=== PATIENT | female | born 1950 | race Caucasian/White ===

== ENCOUNTER 2016-05-30 21:20 | Inpatient (IN) ==
[2016-05-30] MEDS ORDERED: Ondansetron 4 MG/2 ML VIAL IVP ONE (22:00)
[2016-05-30] MEDS ORDERED: 0.9 % Sodium Chloride 1,000 ML IVC ONE (22:00)
--- NOTE | 2016-05-30 22:10 | Emergency Department Note ---
START Narrative - START START: For this encounter, I have reviewed the resident, MACARONI PRESS OPERATOR, or PA documentation, treatment plan, and medical decision making; and I have had face to face time with this patient. 65 yo female presents with n/v/d and abdominal pain. symptoms present x3 weeks. diffuse abdominal pain, described as cramping, better with bowel movement. History of Lung cancer with mets to the brain. No chemo or radiation therapy at this time. ON physical exam pt is tachycardic with hyperactive bowel sounds with tenderness to the bilateral lower quadrants. CT abdomen shows sigmoid diverticulitis with adjacent abscess. Pt started on cipro /flagyl and admitted to the hospital for continuation of care.
[2016-05-30 22:21] LABS: Basophils % 0.2 %; Eosinophils % 0.1 %; Hematocrit 30.5 % (35.3-44.9); Hemoglobin 9.8 g/dL (11.5-15.4); Immature Granulocytes % 0.3 % (0-4); Lymphocytes # 0.9 K/mcL (0.6-4.6); Lymphocytes % 8.6 %; Mean Corpuscular HGB Conc 32.1 g/dL (31.6-35.5); Mean Corpuscular Hemoglobin 29.3 pg (28.0-33.3); Mean Corpuscular Volume 91.3 fL (83.0-100.0); Mean Platelet Volume 9.2 fL (9.4-12.4); Monocytes # 1.7 K/mcL (0.0-1.3); Monocytes % 17.4 %; Platelet Count 416 K/mcL (140-400); Red Blood Count 3.34 M/mcL (3.82-4.97); Red Cell Distribution Width 14.8 % (11.5-14.5); Segmented Neutrophils % 73.4 %
[2016-05-30 22:23] LABS: Neutrophils # 7.3 K/mcL (1.6-8.9)
--- NOTE | 2016-05-30 23:04 | Emergency Department Note ---
Disposition Clinical Impression: Sigmoid diverticulitis Disposition: Admitted As Inpatient Condition: Fair Time of Disposition: 02:54 Nausea/Vomiting/Diarrhea HPI - General Chief complaint: ED Nausea/Vomiting/Diarrhea Stated complaint: N/V/D Time Seen by Provider: 05/30/16 21:33 Source: patient, EMS Limitations: no limitations Nursing Notes Reviewed: Yes Vital Signs Reviewed: Yes - History of Present Illness HPI Narrative: Patient is a 65-year-old female who presents to [facility] ED with a chief complaint of abdominal pain. States there has been increased cramping over the last few days. She has had diarrhea with some mucus, over the last 3 weeks. Patient has had some bright red blood occasionally when she wipes. Denies any fevers or chills. No problems with urination. Past medical history significant for lung cancer with metastasis to the brain. She does occasionally receive radiation but is not currently undergoing any chemotherapy. States they called their oncologist earlier today who sent her in to be seen with concern for dehydration. Pt Subjective Complaint: nausea, vomiting, diarrhea, abdominal pain Onset (ago): week(s) Description of emesis: watery Description of Diarrhea: water, mucous Associated Abdominal Pain: Yes If pain, Location of pain: diffuse Radiation: diffuse Severity: moderate Quality: cramping Consistency: intermittent Improves with: nothing Worsens with: nonthing Associated symptoms: Reports: nausea/vomiting. Denies: cough, fever/chills - Related Data Home Medications Medication Instructions Recorded Confirmed Fluticasone Propionate Nasal 2 spray NS DAILY 01/19/15 03/25/16 [Flonase] Pravastatin Sodium [Pravachol] 40 mg PO DAILY 01/19/15 03/25/16 Cholecalciferol (D-3) [Vitamin D] 5,000 unit PO DAILY 09/26/15 03/25/16 Naproxen [Naprosyn] 500 mg PO BID PRN 09/26/15 03/25/16 OxyCODONE/APAP 10/325 [Percocet 1 each PO Q6HR PRN 09/26/15 03/25/16 10/325 MG] Metformin [Glucophage] 500 mg PO BID 05/13/16 05/13/16 Previous Rx's Medication Instructions Recorded HYDROcodone BIT/Homatropine LQ 5 ml PO Q6H PRN #120 syrup 11/22/15 [Hycodan Syrup] OxyCODONE/APAP 10/325 [Percocet 1 each PO Q6HR PRN #60 tablet 02/26/16 10/325 MG] Pantoprazole Sodium [Protonix] 40 mg PO QDPC #90 tablet. 02/26/16 Hydromorphone HCl [Dilaudid] 1 - 2 tab PO Q4H PRN #90 tablet 03/14/16 Prochlorperazine Maleate 10 mg PO Q6HR PRN #60 tablet 03/14/16 [Compazine] Gabapentin [Neurontin] 300 mg PO TID #90 capsule 03/25/16 Dexamethasone [Decadron] 4 mg PO BID #60 tab 03/29/16 Polyethylene Glycol 3350 [MiraLAX 1 scoop PO DAILY #510 gm 04/22/16 Powder Bulk 17.9 Oz] Azithromycin [Zithromax] 250 - 500 mg PO DAILY #6 tablet 05/27/16 Allergies Allergy/AdvReac Type Severity Reaction Status Date / Time codeine AdvReac Nausea Verified 05/13/16 14:48 All systems ED: reviewed and negative except as stated. Past Medical History - Past Medical History Attestation: Yes The following information was validated with the patient. Source: patient Medical history: Reports: cancer Surgical history: Reports: hysterectomy, other Psychiatric history: Reports: no psych history - Social History Smoking Status: Never smoker Smokeless Tobacco Status: No Alcohol use: Reports: none Drug use: Reports: none Physical Exam - General Limitations: no limitations General appearance: alert - Head Head exam: atraumatic, normocephalic, normal inspection - Eye Eye exam: Present: normal appearance, PERRL, EOMI - ENT ENT exam: normal exam, normal oropharynx, mucous membranes moist - Neck Neck exam: Present: normal inspection, full ROM, trachea midline - Chest Chest inspection: Present: normal inspection, symmetric chest wall rise - Respiratory Respiratory exam: Present: normal lung sounds bilaterally - Cardiovascular Cardiovascular exam: Present: regular rate, normal rhythm, normal heart sounds - Abdominal Exam Abdominal exam: Present: soft, tenderness, hyperactive bowel sounds. Absent: distention, guarding, rebound, rigidity Abdominal tenderness: Present: LLQ, diffuse, moderate - Extremities Exam Extremities exam: Present: normal inspection, full ROM. Absent: tenderness, pedal edema - Neurological Exam Neurological exam: Present: alert, oriented X3 - Psychiatric Psychiatric exam: Present: normal affect, normal mood - Skin Skin exam: Present: warm, dry, intact, normal color Course Course Narrative: Patient seen and examined. Diarrhea over the last 3 weeks with severe abdominal cramping. We will check abdominal labs as well as provide IV fluid hydration. She does have hyperactive bowel sounds. We will get a GI panel since the diarrhea has been going on so long. Bentyl for the cramping. We will reassess. - Reevaluation(s) Reevaluation #1: Lab work shows some anemia with a hemoglobin of 9. This is decreased from prior hemoglobin 13 and level of 9 in the past. CAT scan shows sigmoid diverticulitis with a large abscess. IV Flagyl and Cipro were ordered. I spoke with surgeon Dr. Contreras who will see the patient in consult. He would like coags ordered. I also spoke with hospitalist Dr. Chan who has accepted patient for admission. Time: 02:56 Vital Signs Temperature 98.3 F 05/30/16 21:24 Pulse Rate 96 05/30/16 21:24 Respiratory Rate 18 05/30/16 21:24 Blood Pressure 126/60 05/30/16 21:24 O2 Sat by Pulse Oximetry 95 05/30/16 21:24 Temperature 97.6 F 05/31/16 04:39 Pulse Rate 78 05/31/16 04:39 Respiratory Rate 15 05/31/16 04:39 Blood Pressure 117/84 05/31/16 04:39 O2 Sat by Pulse Oximetry 100 05/31/16 05:13 Oxygen Delivery Oxygen Delivery Nasal Cannula Nausea/Vomiting/Diarrhea - Medical Records Medical records reviewed: Yes I reviewed the patient's medical records. - Lab Data Lab results reviewed: Yes I reviewed the patient's lab results. Result diagrams: 05/30/16 22:03 05/30/16 22:52 Lab Results 05/30/16 05/30/16 05/30/16 Range/Units 22:03 22:42 22:52 WBC 9.9 (4.3-11.1) K/mcL RBC 3.34 L (3.82-4.97) M/mcL Hgb 9.8 L (11.5-15.4) g/dL Hct 30.5 L (35.3-44.9) % MCV 91.3 (83.0-100.0) fL MCH 29.3 (28.0-33.3) pg MCHC 32.1 (31.6-35.5) g/dL RDW 14.8 H (11.5-14.5) % Plt Count 416 H (140-400) K/mcL MPV 9.2 L (9.4-12.4) fL Immature Gran % 0.3 (0-4) % Seg Neutrophils % 73.4 % Lymphocytes % 8.6 % Monocytes % 17.4 % Eosinophils % 0.1 % Basophils % 0.2 % Neutrophils # 7.3 (1.6-8.9) K/mcL Lymphocytes # 0.9 (0.6-4.6) K/mcL Monocytes # 1.7 H (0.0-1.3) K/mcL Eosinophils # 0.0 (0.0-0.6) K/mcL Basophils # 0.0 (0.0-0.2) K/mcL PT (9.4-12.1) Seconds INR APTT (26.0-36.0) Seconds Sodium 139 (136-145) mEq/L Potassium 3.2 L (3.5-4.5) mEq/L Chloride 106 (98-109) mEq/L Carbon Dioxide 23 (19-29) mEq/L BUN 8 (7-20) mg/dL Creatinine 0.51 L (0.57-1.11) mg/dL Est GFR ( Amer) > 60 (> 60) Est GFR (Non-Af Amer) > 60 (> 60) BUN/Creatinine Ratio 16 (6-26) Glucose 117 H (70-99) mg/dL Calculated Osmolality 287 (280-300) Calcium 8.1 L (8.6-10.8) mg/dL Total Bilirubin 0.2 (0.2-1.2) mg/dL AST 9 (5-34) Units/L ALT 9 (0-55) Units/L Alkaline Phosphatase 81 (38-126) Units/L Serum Total Protein 5.3 L (6.0-8.3) g/dL Albumin 1.7 L (3.5-5.0) g/dL Globulin 3.6 H (2.4-3.5) g/dL Albumin/Globulin Ratio 0.5 L (1.1-2.2) Lipase 5 L (8-78) Units/L Urine Color (Yellow) Urine Clarity (Clear) Urine pH (5.0-8.0) pH Units Ur Specific [place] (1.010-1.025) Urine Protein (Neg-Trace) mg/dL Urine Glucose (UA) (Normal) mg/dL Urine Ketones (Negative) mg/dL Urine Blood (Negative) Urine Nitrite (Negative) Urine Bilirubin (Negative) Urine Urobilinogen (Normal) mg/dL Ur Leukocyte Esterase (Negative) Ur Culture Indicated? (NO) Specimen Rejected Hemolyzed 05/30/16 05/31/16 Range/Units 23:44 01:23 WBC (4.3-11.1) K/mcL RBC (3.82-4.97) M/mcL Hgb (11.5-15.4) g/dL Hct (35.3-44.9) % MCV (83.0-100.0) fL MCH (28.0-33.3) pg MCHC (31.6-35.5) g/dL RDW (11.5-14.5) % Plt Count (140-400) K/mcL MPV (9.4-12.4) fL Immature Gran % (0-4) % Seg Neutrophils % % Lymphocytes % % Monocytes % % Eosinophils % % Basophils % % Neutrophils # (1.6-8.9) K/mcL Lymphocytes # (0.6-4.6) K/mcL Monocytes # (0.0-1.3) K/mcL Eosinophils # (0.0-0.6) K/mcL Basophils # (0.0-0.2) K/mcL PT 12.8 H (9.4-12.1) Seconds INR 1.2 APTT 29.9 (26.0-36.0) Seconds Sodium (136-145) mEq/L Potassium (3.5-4.5) mEq/L Chloride (98-109) mEq/L Carbon Dioxide (19-29) mEq/L BUN (7-20) mg/dL Creatinine (0.57-1.11) mg/dL Est GFR ( Amer) (> 60) Est GFR (Non-Af Amer) (> 60) BUN/Creatinine Ratio (6-26) Glucose (70-99) mg/dL Calculated Osmolality (280-300) Calcium (8.6-10.8) mg/dL Total Bilirubin (0.2-1.2) mg/dL AST (5-34) Units/L ALT (0-55) Units/L Alkaline Phosphatase (38-126) Units/L Serum Total Protein (6.0-8.3) g/dL Albumin (3.5-5.0) g/dL Globulin (2.4-3.5) g/dL Albumin/Globulin Ratio (1.1-2.2) Lipase (8-78) Units/L Urine Color Yellow (Yellow) Urine Clarity Clear (Clear) Urine pH 7.0 (5.0-8.0) pH Units Ur Specific [place] 1.010 (1.010-1.025) Urine Protein Negative (Neg-Trace) mg/dL Urine Glucose (UA) Normal (Normal) mg/dL Urine Ketones Negative (Negative) mg/dL Urine Blood Negative (Negative) Urine Nitrite Negative (Negative) Urine Bilirubin Negative (Negative) Urine Urobilinogen Normal (Normal) mg/dL Ur Leukocyte Esterase Negative (Negative) Ur Culture Indicated? NO (NO) Specimen Rejected - Radiology Data Radiology results reviewed: Yes I reviewed the patient's radiology results. Abdomen/Pelvis CT 05/31/16 00:15 IMPRESSION: 1. Sigmoid diverticulitis with a large adjacent abscess. 2. Left adnexal lesion has already been evaluated with MRI. Surgical consultation and pelvic sonography have already been recommended. D/ / Og Langston MD / Og Langston MD Interpreting Provider: Og Langston MD
[2016-05-31 00:01] LABS: Bilirubin,Urine Negative (Negative); Blood,Urine Negative (Negative); Clarity,Urine Clear (Clear); Color,Urine Yellow (Yellow); Glucose,Urine (UA) Normal (Normal); Ketones,Urine Negative (Negative); Leukocyte Esterase,Urine Negative (Negative); Nitrite,Urine Negative (Negative); Protein,Urine Negative (Neg-Trace); Urobilinogen,Urine Normal (Normal)
[2016-05-31 00:15] LABS: Alanine Aminotransferase 9 Units/L (0-55); Albumin/Globulin Ratio 0.5 (1.1-2.2); Alkaline Phosphatase 81 Units/L (38-126); Aspartate Amino Transferase 9 Units/L (5-34); BUN/Creatinine Ratio 16 (6-26); Bilirubin,Total 0.2 mg/dL (0.2-1.2); Blood Urea Nitrogen 8 mg/dL (7-20); Calcium 8.1 mg/dL (8.6-10.8); Carbon Dioxide 23 mEq/L (19-29); Chloride 106 mEq/L (98-109); Globulin 3.6 g/dL (2.4-3.5); Glucose 117 mg/dL (70-99); Lipase 5 Units/L (8-78); Osmolality,Calculated 287 (280-300); Sodium 139 mEq/L (136-145); eGFR For African Americans > 60 (> 60); eGFR For Non-African Americans > 60 (> 60)
[2016-05-31 00:17] LABS: Albumin 1.7 g/dL (3.5-5.0); Potassium 3.2 mEq/L (3.5-4.5); Total Protein 5.3 g/dL (6.0-8.3)
[2016-05-31] MEDS ORDERED: MetroNIDAZOLE 500 MG/100 ML 500 MG/100 ML BAG IVPB ONE (01:11)
[2016-05-31 01:31] LABS: INR 1.2; Prothrombin Time 12.8 Seconds (9.4-12.1)
[2016-05-31 01:34] LABS: Activated Partial Thrombo Time 29.9 Seconds (26.0-36.0)
--- NOTE | 2016-05-31 04:32 | Internal Med History&Physical ---
Date of Encounter: 05/31/16 Time of Encounter: 04:26 Assessment and Plan (1) Abscess of sigmoid colon due to diverticulitis Current visit: Yes Status: Acute Surgery consulted, appreciate management Will make NPO for now and support with maintenance IVF, analgesics, and anti- emetics PRN Start antibiotics with anaerobic coverage with Meropenem and Flagyl GI panel collected, results pending (2) Anemia Current visit: Yes Status: Acute Likely due to blood loss from GI in setting of divertulitis with abscess Hb of 9.8 at admission with previous baseline around 12-13 last year; MCV 91 No acute indication for transfusion, but will type and screen for now Qualifiers: Qualified Code(s): D64.9 - Anemia, unspecified (3) Metastatic squamous cell carcinoma Current visit: Yes Status: Chronic Patient being managed by her oncologist at [facility], will defer to outpatient management Not currently on any chemo/radiation (4) Hypokalemia Current visit: Yes Status: Acute Likely secondary to GI losses Initial levels of 3.2 and received 40 mEq PO in ED Will recheck levels in AM Internal Medicine - H&P: HPI Chief complaint: abdominal pain Admitted From: Home Plans for Post Hospital Care: Home History of present illness: Ms. Rose is a 65 year old female who presents to the emergency department with abdominal pain. She states that she had diarrhea and lower abdominal pain for the past 3 weeks and has been progressively getting worse. She states the pain is intermittent and not associated with food or movement, and that it gets worse after she has diarrhea. She claims to have up to 15 movements per day and describes them as loose and sometimes watery. She denies any urinary symptoms, hemoptysis, nausea, vomiting, fevers, or recent travels, but does state she has noticed some bright red blood when she wipes on occasion for the last several months. She reports her appetite is good and has not noticed any weight loss. Her most recent colonoscopy was roughly 3 years ago and she has known history of diverticulosis, but never has anything like this happen to her in the past. Of note, she has history of squamous cell lung cancer with mets to bone and brain, and has had resection of left parietal mets last year. She has been off and on chemo during this time as well, but has not received any treatment in the last few months. She currently denies any chest pain, shortness of breath, diaphoresis, lightheadedness. Past Med Surg Social Fam HX - Past Medical History Medical history: cancer Psychiatric history: no psych history - Past Surgical History Surgical History: hysterectomy, other - Social History Smoking Status: Never smoker Smokeless Tobacco Status: No Alcohol use: none Drug use: none Internal Medicine - H&P: Meds Fluticasone Propionate Nasal [Flonase] 2 spray NS DAILY 01/19/15 [History] Pravastatin Sodium [Pravachol] 40 mg PO DAILY 01/19/15 [History] Cholecalciferol (D-3) [Vitamin D] 5,000 unit PO DAILY 09/26/15 [History] Naproxen [Naprosyn] 500 mg PO BID PRN 09/26/15 [History] OxyCODONE/APAP 10/325 [Percocet 10/325 MG] 1 each PO Q6HR PRN 09/26/15 [History] HYDROcodone BIT/Homatropine LQ [Hycodan Syrup] 5 ml PO Q6H PRN #120 syrup [Rx] OxyCODONE/APAP 10/325 [Percocet 10/325 MG] 1 each PO Q6HR PRN #60 tablet [Rx] Pantoprazole Sodium [Protonix] 40 mg PO QDPC #90 tablet.dr 02/26/16 [Rx] Hydromorphone HCl [Dilaudid] 1 - 2 tab PO Q4H PRN #90 tablet 03/14/16 [Rx] Prochlorperazine Maleate [Compazine] 10 mg PO Q6HR PRN #60 tablet 03/14/16 [Rx] Gabapentin [Neurontin] 300 mg PO TID #90 capsule 03/25/16 [Rx] Dexamethasone [Decadron] 4 mg PO BID #60 tab 03/29/16 [Rx] Polyethylene Glycol 3350 [MiraLAX Powder Bulk 17.9 Oz] 1 scoop PO DAILY #510 gm 04/22/16 [Rx] Metformin [Glucophage] 500 mg PO BID 05/13/16 [History] Azithromycin [Zithromax] 250 - 500 mg PO DAILY #6 tablet 05/27/16 [Rx] Allergies codeine Adverse Reaction (Verified 05/13/16 14:48) Nausea All Systems PM: A 10-system review of systems was performed and is negative for pertinent findings except as documented above in the HPI. - Constitutional Constitutional: no chills, no fever(s), no night sweats, no weight loss - EENT Eyes: no change in vision, no discharge, no pain, no photophobia Ears: no ear discharge, no ear pain, no tinnitus Nose, mouth and throat: no dysphagia, no nasal discharge, no neck pain, no sore throat - Cardiovascular Cardiovascular ROS IM: no chest pain, no diaphoresis, no dyspnea, no lightheadedness, no palpitations, no syncope - Respiratory Respiratory: no cough, no dyspnea, no wheezing, no excessive phlegm production - Gastrointestinal Gastrointestinal: as per HPI, abdominal pain, diarrhea, no hematemesis, no hematochezia, no melena, no nausea, no vomiting - Genitourinary Genitourinary: no change in urinary stream, no dysuria, no flank pain, no hematuria - Musculoskeletal Musculoskeletal ROS IM: no numbness, no tingling - Integumentary Integumentary IM: no rash, no unusual bruising - Neurological Neurological ROS: no confusion, no convulsions, no focal weakness, no numbness, no tingling, no tremor(s) - Hematologic/Lymphatic Hematologic/Lymphatic: no easy bruising - Constitutional Vitals: Temp Pulse Resp BP Pulse Ox 98.3 F 81 16 106/53 98 05/30/16 21:24 05/31/16 03:41 05/31/16 03:51 05/31/16 03:51 05/31/16 03:41 General appearance: Present: cooperative, pleasant, no acute distress, answers questions appropriately - Head Head exam: Present: atraumatic, normocephalic - Eye Eye exam: Present: PERRL, conjuntiva pink, sclera anicteric - Neck Neck exam general surgery: Present: supple, trachea midline. Absent: lymphadenopathy - Respiratory Respiratory exam: Present: CTAB. Absent: accessory muscle use, rales, rhonchi, wheezes - Cardiovascular Cardiovascular exam: Present: RRR, +S1, +S2. Absent: diastolic murmur, gallop, rubs, systolic murmur - GI/Abdominal GI/Abdominal exam: Present: normal bowel sounds, soft, tenderness (LLQ), no peritoneal signs. Absent: distended, firm, guarding - Extremities Exam Extremities exam: Present: warm, radial pulses palpable and symetrical. Absent : calf tenderness, cyanotic, pedal edema - Neurological Exam Neurological exam: Present: alert, no focal deficits. Absent: facial droop, speech deficit - Skin Skin exam: Present: dry, intact Internal Med - H&P Results - Labs CBC & Chem 7: 05/30/16 22:03 05/30/16 22:52
[2016-05-31] MEDS ORDERED: *HR* Morphine 2 MG/ML SYRINGE IVP PRN (04:49)
[2016-05-31] MEDS ORDERED: Naloxone 0.4 MG/ML INJ IVP PRN (04:49)
[2016-05-31] MEDS ORDERED: Acetaminophen 325 MG TABLET PO PRN (04:49)
[2016-05-31] MEDS: Ringers Solution, Lactated 1,000 ML IVC SCH (05:47)
--- NOTE | 2016-05-31 05:48 | Event Note ---
Date of Encounter: 05/31/16 Time of Encounter: 05:47 Patient seen and examined with medical records coder. Agree with assessment and plan. Acute diverticulitis complicated with abscess. Surgery and interventional radiology consultation. meropenem, Flagyl
[2016-05-31] MEDS ORDERED: Meropenem 1,000 MG in 0.9 % Sodium Chloride Mini Bag 100 ML IVPB SCH (08:00)
[2016-05-31] MEDS: Pantoprazole 40 MG VIAL IVP SCH (09:39)
--- NOTE | 2016-05-31 09:44 | General Surgery Consult Note ---
Date of Encounter: 05/31/16 Time of Encounter: 09:00 Assessment and Plan (1) Abscess of sigmoid colon due to diverticulitis Current Visit: Yes Status: Acute NPO and bowel rest IV fluids IV antibiotics- Meropenem and flagyl IR consultation for drainage of abscess- notified to complete today Supportive care and pain control Serial abdominal exams Will need an interval colonoscopy in 6-8 weeks Surgery will continue to follow and assess progress (2) Metastatic lung cancer (metastasis from lung to other site) Current Visit: Yes Status: Chronic Management per oncologist at [facility] Qualifiers: Laterality: right Qualified Code(s): C34.91 - Malignant neoplasm of unspecified part of right bronchus or lung History of Present Illness Consult date: 05/31/16 Reason for consult: other (Diverticulitis with abscess) Requesting physician: Jannette Villaseñor History of present illness: Mrs. Rose is a very pleasant 65 year old female who presented to the ED with a 3 week history of abdominal pain. She states that over the past 3 weeks that the pain has become more intense and constant. Generalized pain all over her abdomen. She states that she has not been treated or evaluated for the pain but that she was scheduled to see a senior clinical sas programmer today for evaluation at [facility]. She states that she could not take the pain anymore and that her oncologist recommended coming to the ED for evaluation. She states that she has never had pain this severe in the past. She states that she has had intermittent abdominal pain for the past few years. She has never been hospitalized for diverticulitis. She admits to diarrhea for the past 3 weeks. She typically has a bowel movement after meals up to 3 times per day. She does admit to some rectal bleeding due to irritation of her hemorrhoids with the diarrhea. Denies any fevers/chills. Denies any nausea/vomiting. Denies any loss of appetite of weight loss. Denies any difficulty with urination. Denies any shortness of breath of chest pains. Her last colonoscopy was approximately 3 years ago and was normal at that time. She does have a history of colon polyps. We have been asked to see and evaluate the patient for her diverticulitis with abscess which was seen on CT scan. Past Med Surg Social Fam HX - Past Medical History Source: patient, old records reviewed Medical history: arthritis, cancer (metastatis lung cancer (brain); skin cancer ; uterine cancer), GERD, hyperlipidemia, other (Diverticulosis, colon polyps) Psychiatric history: no psych history - Past Surgical History Surgical History: cancer surgery (chemotherapy and radiation therapy intermittently for brain metastasis; bilateral foot surgery; colonoscopy 3 years ago; Tonsillectomy), hysterectomy, other (brain surgery) - Social History Smoking Status: Never smoker Smokeless Tobacco Status: No Alcohol use: none Drug use: none Current living situation: Home - Independent Activity Level: Independent ambulation Medications and Allergies Fluticasone Propionate Nasal [Flonase] 100 mcg NS DAILY 01/19/15 [History] Cholecalciferol (D-3) [Vitamin D] 5,000 unit PO DAILY 09/26/15 [History] Prochlorperazine Maleate [Compazine] 10 mg PO Q6HR PRN #60 tablet 03/14/16 [Rx] Metformin [Glucophage] 500 mg PO BID 05/13/16 [History] Gabapentin [Neurontin] 100 mg PO TID 05/31/16 [History] Pantoprazole Sodium [Protonix] 40 mg PO DAILY PRN 05/31/16 [History] Pioglitazone HCl [Pioglitazone HCl] 30 mg PO DAILY 05/31/16 [History] Venlafaxine HCl [Venlafaxine HCl] 37.5 mg PO BID 05/31/16 [History] Allergies codeine Adverse Reaction (Verified 05/31/16 10:20) Drowsy Review of Systems All systems PM: reviewed and no additional remarkable complaints except as stated (in the HPI) All systems PM: A 10-system review of systems was performed and is negative for pertinent findings except as documented above in the HPI. General Surgery Exam Initial Vital Signs Temp Pulse Resp BP Pulse Ox 98.3 F 96 18 126/60 95 05/30/16 21:24 05/30/16 21:24 05/30/16 21:24 05/30/16 21:24 05/30/16 21:24 - General physical appearance well developed, well nourished, no distress - Eyes normal ocular movement - ENT normal mucosa, atraumatic, normocephalic - Neck trachea midline - Respiratory normal respiratory effort, clear to auscultation - Cardiovascular Cardiovascular exam: Present: RRR, 15, 16 - Abdomen Abdomen general surgery: Present: bowel sounds present, soft, tender (mildly tender with palpation ) Abdominal Tenderness: Present: LLQ - Integumentary Integumentary general surgery: Present: warm and dry - Neurologic Present: CN 2-12 grossly intact - Musculoskeletal Present: normal gait, normal posture - Psychiatric Psychiatric general surgery: Present: appropriate, oriented to person, oriented to place, oriented to time, speech is normal, memory intact Exam Initial Vital Signs Temp Pulse Resp BP Pulse Ox 98.3 F 96 18 126/60 95 05/30/16 21:24 05/30/16 21:24 05/30/16 21:24 05/30/16 21:24 05/30/16 21:24 Results - Labs 05/30/16 22:03 05/30/16 22:52 Abnormal lab results RBC 3.34 M/mcL (3.82-4.97) L 05/30/16 22:03 Hgb 9.8 g/dL (11.5-15.4) L 05/30/16 22:03 Hct 30.5 % (35.3-44.9) L 05/30/16 22:03 RDW 14.8 % (11.5-14.5) H 05/30/16 22:03 Plt Count 416 K/mcL (140-400) H 05/30/16 22:03 MPV 9.2 fL (9.4-12.4) L 05/30/16 22:03 Monocytes # 1.7 K/mcL (0.0-1.3) H 05/30/16 22:03 PT 12.8 Seconds (9.4-12.1) H 05/31/16 01:23 Potassium 3.2 mEq/L (3.5-4.5) L 05/30/16 22:52 Creatinine 0.51 mg/dL (0.57-1.11) L 05/30/16 22:52 Glucose 117 mg/dL (70-99) H 05/30/16 22:52 Calcium 8.1 mg/dL (8.6-10.8) L 05/30/16 22:52 Serum Total Protein 5.3 g/dL (6.0-8.3) L 05/30/16 22:52 Albumin 1.7 g/dL (3.5-5.0) L 05/30/16 22:52 Globulin 3.6 g/dL (2.4-3.5) H 05/30/16 22:52 Albumin/Globulin Ratio 0.5 (1.1-2.2) L 05/30/16 22:52 Lipase 5 Units/L (8-78) L 05/30/16 22:52 All other labs normal. - Imaging CT scan - abdomen: report reviewed CT scan - pelvis: report reviewed Additional studies: Abdomen/Pelvis CT 05/31/16 00:15 IMPRESSION: 1. Sigmoid diverticulitis with a large adjacent abscess. 2. Left adnexal lesion has already been evaluated with MRI. Surgical consultation and pelvic sonography have already been recommended. D/ / Og Langston MD / Og Langston MD Interpreting Provider: Og Langston MD Consult Discharge Plan - Plan Referrals: NO,PCP [Non-Partnered Physician] - - Attending Attestation I examined this patient and my medical decision-making was reviewed with the PREFORMING MACHINE OPERATOR/PA/Advanced Practice Nurse/Resident Physician. I agree with the documented findings, disposition and treatment plan as described except to the extent set forth below.
[2016-05-31] MEDS ORDERED: MetroNIDAZOLE 500 MG/100 ML 500 MG/100 ML BAG IVPB SCH (10:00)
[2016-05-31] MEDS ORDERED: *HR* Midazolam HCl 2 MG/2 ML VIAL IV PRN (10:24)
[2016-05-31] MEDS ORDERED: *HR* FentaNYL (PF) 100 MCG/2 ML VIAL IV PRN (10:24)
--- NOTE | 2016-05-31 10:26 | Pre-Sedation Evaluation ---
Pre-sedation evaluation - Pre-sedation checklist Procedure: LYMPH NODE BIOPSY Recent Vitals: Last Vital Signs Temp 98.3 F 05/31/16 07:49 Pulse 78 05/31/16 07:49 Resp 16 05/31/16 07:49 BP 107/68 05/31/16 07:49 Pulse Ox 95 05/31/16 07:49 H&P (including ROS) documented in medical record: Yes Previous reaction to sedatives/anesthetics: No Dietary Status: NPO after Midnight Airway Assessment: Patient can open mouth completely, TMJ function normal, Micrognathia (under-bite, receding chin) absent, Neck with adequate range of motion Dentition: No loose teeth or bridges Possible difficult airway: No ASA Classification *see protocol: CLASS II-Mild systemic disease Plan of Care: Pt appropriate candidate for procedure/moderate/conscious sedation , Risks/benefits of procedure/sedation discussed w/ patient/family
[2016-05-31] MEDS ORDERED: 0.9 % Sodium Chloride 500 ML ONE (12:08)
[2016-05-31] MEDS: *HR* Morphine 2 MG/ML SYRINGE IVP PRN ×3 (13:28→21:05)
[2016-05-31 13:53] LABS: BUN/Creatinine Ratio 12 (6-26); Blood Urea Nitrogen 7 mg/dL (7-20); Calcium 8.6 mg/dL (8.6-10.8); Carbon Dioxide 23 mEq/L (19-29); Chloride 108 mEq/L (98-109); Glucose 165 mg/dL (70-99); Osmolality,Calculated 292 (280-300); Potassium 3.6 mEq/L (3.5-4.5); Sodium 140 mEq/L (136-145); eGFR For African Americans > 60 (> 60); eGFR For Non-African Americans > 60 (> 60)
[2016-05-31 13:57] LABS: Basophils % 0.1 %; Eosinophils % 0.3 %; Hematocrit 27.4 % (35.3-44.9); Hemoglobin 8.8 g/dL (11.5-15.4); Immature Granulocytes % 0.3 % (0-4); Lymphocytes # 0.6 K/mcL (0.6-4.6); Lymphocytes % 8.2 %; Mean Corpuscular HGB Conc 32.1 g/dL (31.6-35.5); Mean Corpuscular Hemoglobin 29.5 pg (28.0-33.3); Mean Corpuscular Volume 91.9 fL (83.0-100.0); Mean Platelet Volume 9.2 fL (9.4-12.4); Monocytes # 1.6 K/mcL (0.0-1.3); Monocytes % 20.1 %; Platelet Count 396 K/mcL (140-400); Red Blood Count 2.98 M/mcL (3.82-4.97)
[2016-05-31 14:45] LABS: Neutrophils # 5.5 K/mcL (1.6-8.9)
[2016-05-31 14:56] LABS: Polychromasia 1+ (Not Present)
[2016-05-31] MEDS: Piperacillin/Tazobactam 3.375 GM in D5% in Water (Mini-Bag+) 100 ML IVPB SCH (16:48)
--- NOTE | 2016-05-31 17:22 | Event Note ---
Date of Encounter: 05/31/16 Time of Encounter: 17:20 patinet admitted for acute diverticulitis with intra abdominal abscess. planned for IR guided drainage of abscess, started on IV antibiotics. Surgery following, will follow further recommendations. Patient currently on meropenem and Flagyl, no leukocytosis or fever. body fluid cx shows gram positive cocci adn gram neg rods. We will switch ab to vanco and Zosyn today. We will continue to follow final culture results.
[2016-05-31] MEDS: Vancomycin 1,000 MG in D5% in Water 250 ML IVPB SCH (18:42)
[2016-06-01] MEDS: Piperacillin/Tazobactam 3.375 GM in D5% in Water (Mini-Bag+) 100 ML IVPB SCH ×4 (01:11→23:40)
[2016-06-01] MEDS: *HR* Morphine 2 MG/ML SYRINGE IVP PRN ×4 (01:16→18:03)
[2016-06-01] MEDS: Ringers Solution, Lactated 1,000 ML IVC SCH ×3 (04:44→22:50)
[2016-06-01] MEDS: Vancomycin 1,000 MG in D5% in Water 250 ML IVPB SCH ×2 (06:53→17:02)
[2016-06-01] MEDS: Pantoprazole 40 MG VIAL IVP SCH (07:45)
[2016-06-01] MEDS ORDERED: Aminoglycoside Consult 1 EACH MC ONE (08:51)
[2016-06-01 09:19] LABS: Basophils % 0.2 %; Eosinophils % 0.2 %; Hematocrit 27.2 % (35.3-44.9); Hemoglobin 8.5 g/dL (11.5-15.4); Immature Granulocytes % 0.5 % (0-4); Immature Platelets 2.2 % (1.1-6.1); Lymphocytes # 0.8 K/mcL (0.6-4.6); Lymphocytes % 14.5 %; Mean Corpuscular HGB Conc 31.3 g/dL (31.6-35.5); Mean Corpuscular Hemoglobin 28.8 pg (28.0-33.3); Mean Corpuscular Volume 92.2 fL (83.0-100.0); Monocytes # 1.2 K/mcL (0.0-1.3); Monocytes % 20.6 %; Neutrophils # 3.6 K/mcL (1.6-8.9); Platelet Count 504 K/mcL (140-400); Red Blood Count 2.95 M/mcL (3.82-4.97); Red Cell Distribution Width 15.2 % (11.5-14.5)
[2016-06-01 09:30] LABS: BUN/Creatinine Ratio 7 (6-26); Calcium 8.3 mg/dL (8.6-10.8); Carbon Dioxide 25 mEq/L (19-29); Chloride 105 mEq/L (98-109); Glucose 162 mg/dL (70-99); Osmolality,Calculated 292 (280-300); Potassium 3.5 mEq/L (3.5-4.5); Sodium 141 mEq/L (136-145); eGFR For African Americans > 60 (> 60); eGFR For Non-African Americans > 60 (> 60)
[2016-06-01 09:33] LABS: Blood Urea Nitrogen 4 mg/dL (7-20)
[2016-06-01 09:44] LABS: Platelet Estimate Increased (Normal)
[2016-06-01] MEDS: Gabapentin 100 MG CAPSULE PO SCH ×2 (13:44→20:21)
[2016-06-01] MEDS: *HR* Metformin 500 MG TABLET PO SCH (16:36)
--- NOTE | 2016-06-01 17:06 | General Surgery Progress Note ---
Date of Encounter: 06/01/16 Time of Encounter: 09:35 - Assessment and Plan (1) Abscess of sigmoid colon due to diverticulitis Current Visit: Yes Status: Acute Status post drainage per IR with drain in place. Clear liquid diet with ensure. IV fluids IV antibiotics. Supportive care and pain management. Serial abdominal exams. Will need air contrast barium enema in 6-8 weeks. (2) Metastatic lung cancer (metastasis from lung to other site) Current Visit: Yes Status: Chronic Management per oncologist at [place] Qualifiers: Laterality: right Qualified Code(s): C34.91 - Malignant neoplasm of unspecified part of right bronchus or lung Subjective Patient reports: feels better, pain is less, tolerating a regular diet, flatus, no bowel movement, afebrile Objective Vital Signs - Last 8 Hours Temp Pulse Resp BP Pulse Ox 06/01/16 15:42 98.8 F 90 16 141/70 95 06/01/16 11:09 97.7 F 79 16 105/57 97 Intake and Output 06/01/16 06/01/16 06/01/16 07:59 15:59 23:59 Intake Total 1100 / 1100 470 / 470 521 / 521 Output Total 100 / 100 700 / 700 Balance 1000 / 1000 -230 / -230 521 / 521 Intake: IV Fluids 1100 / 1100 350 / 350 521 / 521 Lactated Ringers 1,000 ML 1000 / 1000 521 / 521 @ 80 mls/hr IVC .[id number] [facility] Rx#:[id number] Zosyn 3.375 GM In 100 / 100 100 / 100 Dextrose 5% (Minibag+) 100 ML 100 ML @ 25 mls/hr IVPB Q8HR [facility] Rx#: [id number] Vancocin 1,000 MG In 250 / 250 Dextrose 5% 250 ML @ 167 mls/hr IVPB Q12H [facility] Rx#: [id number] Oral 0 / 0 120 / 120 Output: Urine 100 / 100 700 / 700 Wound Drainage 0 / 0 0 / 0 Lower Abdomen 0 / 0 0 / 0 Other: Meal Breakfast Percent of Meal Consumed 5% # Bowel Movements 0 0 # Bowel Movement Diapers 0 Weight 70.987 kg Patient Weight 06/01/16 23:59 Weight 70.987 kg - General physical appearance well developed, well nourished, no distress - Eyes normal ocular movement - ENT normal mucosa, atraumatic, normocephalic, Other (area of alopecia on right side of scalp) - Neck Neck exam: trachea midline - Respiratory normal respiratory effort, clear to auscultation - Cardiovascular Cardiovascular exam: Present: RRR - Abdomen Abdomen: Present: bowel sounds present, soft, tender (mild tenderness around drain site), wound (WILMAN drain in place with purulent drainage) - Integumentary no rash - Neurologic CN 2-12 grossly intact - Musculoskeletal normal posture - Psychiatric oriented to time, oriented to person, oriented to place, speech is normal, memory intact - Labs 06/01/16 09:05 06/01/16 09:05 Diabetes panel 06/01/16 Range/Units 09:05 Sodium 141 (136-145) mEq/L Potassium 3.5 (3.5-4.5) mEq/L Chloride 105 (98-109) mEq/L Carbon Dioxide 25 (19-29) mEq/L BUN 4 L (7-20) mg/dL Creatinine 0.61 (0.57-1.11) mg/dL Glucose 162 H (70-99) mg/dL Calcium 8.3 L (8.6-10.8) mg/dL Calcium panel 06/01/16 Range/Units 09:05 Calcium 8.3 L (8.6-10.8) mg/dL Pituitary panel 06/01/16 Range/Units 09:05 Sodium 141 (136-145) mEq/L Potassium 3.5 (3.5-4.5) mEq/L Chloride 105 (98-109) mEq/L Carbon Dioxide 25 (19-29) mEq/L BUN 4 L (7-20) mg/dL Creatinine 0.61 (0.57-1.11) mg/dL Glucose 162 H (70-99) mg/dL Calcium 8.3 L (8.6-10.8) mg/dL Adrenal panel 06/01/16 Range/Units 09:05 Sodium 141 (136-145) mEq/L Potassium 3.5 (3.5-4.5) mEq/L Chloride 105 (98-109) mEq/L Carbon Dioxide 25 (19-29) mEq/L BUN 4 L (7-20) mg/dL Creatinine 0.61 (0.57-1.11) mg/dL Glucose 162 H (70-99) mg/dL Calcium 8.3 L (8.6-10.8) mg/dL Consult Discharge Plan - Plan Referrals: Sujata Orr DO [Primary Care Provider] - 06/12/16 1:00 pm (Patient will actually be seeing Yamini the MANAGER CATEGORY in the office. Dr. Orr will be out of the office. Thank you) - Attending Attestation I examined this patient and my medical decision-making was reviewed with the STORAGE BATTERY INSPECTOR AND TESTER/PA/Advanced Practice Nurse/Resident Physician. I agree with the documented findings, disposition and treatment plan as described except to the extent set forth below.
--- NOTE | 2016-06-01 17:50 | Internal Med Progress Note ---
Date of Encounter: 06/01/16 (t) Time of Encounter: 17:48 - Assessment and plan (1) Abscess of sigmoid colon due to diverticulitis Current Visit: Yes Status: Acute Assessment and plan: s/p IR guided abscess drain and drain is placed. will contiue IV antibiotics. follow cx results follow surgical recommendations (2) Metastatic lung cancer (metastasis from lung to other site) Current Visit: Yes Status: Chronic Assessment and plan: follows at [place]. Qualifiers: Laterality: right Qualified Code(s): C34.91 - Malignant neoplasm of unspecified part of right bronchus or lung - Time Spent With Patient 25 - 35 minutes - Subjective Interval history: seen at [facility], drain in situ draining white pus form the abscess reports still has mild abdominal pain. - Constitutional Vitals: Temp Pulse Resp BP Pulse Ox 98.8 F 90 16 141/70 95 06/01/16 15:42 06/01/16 15:42 06/01/16 15:42 06/01/16 15:42 06/01/16 15:42 General appearance: Present: cooperative, pleasant, no acute distress, answers questions appropriately Exam: - Head Head exam: Present: atraumatic, normocephalic - Eye Eye exam: Present: PERRL, conjuntiva pink, sclera anicteric - Neck Neck exam general surgery: Present: supple, trachea midline. Absent: lymphadenopathy - Respiratory Respiratory exam: Present: CTAB. Absent: accessory muscle use, rales, rhonchi, wheezes - Cardiovascular Cardiovascular exam: Present: RRR, +S1, +S2. Absent: diastolic murmur, gallop, rubs, systolic murmur - GI/Abdominal GI/Abdominal exam: Present: normal bowel sounds, soft, tenderness (LLQ), no peritoneal signs, drain in left side of the abdomen Absent: distended, firm, guarding - Extremities Exam Extremities exam: Present: warm, radial pulses palpable and symetrical. Absent : calf tenderness, cyanotic, pedal edema - Neurological Exam Neurological exam: Present: alert, no focal deficits. Absent: facial droop, speech deficit - Skin Skin exam: Present: dry, intact Internal Medicine: Result - Labs CBC & Chem 7: 06/01/16 09:05 06/01/16 09:05 Labs: Short CBC 06/01/16 Range/Units 09:05 WBC 5.6 (4.3-11.1) K/mcL Hgb 8.5 L (11.5-15.4) g/dL Hct 27.2 L (35.3-44.9) % Plt Count 504 H (140-400) K/mcL Neutrophils # 3.6 (1.6-8.9) K/mcL BMP 06/01/16 09:05 Sodium 141 Potassium 3.5 Chloride 105 Carbon Dioxide 25 BUN 4 L Creatinine 0.61 Glucose 162 H Calcium 8.3 L - ABG Interpretation ABG results: PT/INR, D-dimer PT 12.8 Seconds (9.4-12.1) H 05/31/16 01:23 Consult Discharge Plan - Plan Referrals: Sujata Orr DO [Primary Care Provider] - 06/12/16 1:00 pm (Patient will actually be seeing Yamini the DUST MILL OPERATOR in the office. Dr. Orr will be out of the office. Thank you)
[2016-06-02] MEDS: Vancomycin 1,000 MG in D5% in Water 250 ML IVPB SCH (06:06)
[2016-06-02] MEDS: Pantoprazole 40 MG VIAL IVP SCH (07:56)
[2016-06-02] MEDS: Cholecalciferol (D-3) 1,000 UNIT TABLET PO SCH (07:57)
[2016-06-02] MEDS: *HR* Pioglitazone 30 MG TABLET PO SCH (07:57)
[2016-06-02] MEDS: *HR* Metformin 500 MG TABLET PO SCH ×2 (07:57→17:13)
[2016-06-02] MEDS: Piperacillin/Tazobactam 3.375 GM in D5% in Water (Mini-Bag+) 100 ML IVPB SCH ×2 (07:57→16:00)
[2016-06-02] MEDS: Gabapentin 100 MG CAPSULE PO SCH ×3 (07:57→20:26)
[2016-06-02] MEDS: Fluticasone Propionate Nasal 50 MCG/SPRAY BOTTLE NS SCH (08:00)
[2016-06-02 08:32] LABS: Hemoglobin 8.3 g/dL (11.5-15.4); Mean Corpuscular HGB Conc 30.7 g/dL (31.6-35.5); Mean Corpuscular Hemoglobin 28.3 pg (28.0-33.3); Mean Corpuscular Volume 92.2 fL (83.0-100.0); Mean Platelet Volume 8.7 fL (9.4-12.4); Platelet Count 435 K/mcL (140-400); Red Blood Count 2.93 M/mcL (3.82-4.97); Red Cell Distribution Width 15.1 % (11.5-14.5)
[2016-06-02 08:48] LABS: BUN/Creatinine Ratio 5 (6-26); Calcium 8.3 mg/dL (8.6-10.8); Carbon Dioxide 27 mEq/L (19-29); Chloride 104 mEq/L (98-109); Glucose 138 mg/dL (70-99); Osmolality,Calculated 291 (280-300); Potassium 3.3 mEq/L (3.5-4.5); Sodium 141 mEq/L (136-145); eGFR For African Americans > 60 (> 60); eGFR For Non-African Americans > 60 (> 60)
[2016-06-02 08:49] LABS: Blood Urea Nitrogen 3 mg/dL (7-20)
[2016-06-02 09:13] LABS: Anisocytosis 1+ (Not Present); Lymphocytes # 0.3 K/mcL (0.6-4.6); Monocytes # 1.2 K/mcL (0.0-1.3); Neutrophils # 4.7 K/mcL (1.6-8.9); Platelet Estimate Normal (Normal)
--- NOTE | 2016-06-02 10:21 | Internal Med Progress Note ---
Date of Encounter: 06/02/16 Time of Encounter: 10:19 - Assessment and plan (1) Abscess of sigmoid colon due to diverticulitis Current Visit: Yes Status: Acute Assessment and plan: s/p IR guided abscess drain and drain is placed. will contiue IV antibiotics, will stop the vanco today, cx growing gram negative and citrobacter. no leucocytosis or fever, clinically better. follow surgical recommendations on the continuation of drain. (2) Metastatic lung cancer (metastasis from lung to other site) Current Visit: Yes Status: Chronic Assessment and plan: follows at [place]. Qualifiers: Laterality: right Qualified Code(s): C34.91 - Malignant neoplasm of unspecified part of right bronchus or lung - Time Spent With Patient 25 - 35 minutes - Subjective Interval history: seen at [facility], drain in situ draining white pus from the abscess reports that she feels much better, abdominal pain is better. - Constitutional Vitals: Temp Pulse Resp BP Pulse Ox 98.2 F 79 16 132/80 96 06/02/16 07:29 06/02/16 07:29 06/02/16 07:29 06/02/16 07:29 06/02/16 07:29 General appearance: Present: cooperative, pleasant, no acute distress, answers questions appropriately Exam: - Head Head exam: Present: atraumatic, normocephalic - Eye Eye exam: Present: PERRL, conjuntiva pink, sclera anicteric - Neck Neck exam general surgery: Present: supple, trachea midline. Absent: lymphadenopathy - Respiratory Respiratory exam: Present: CTAB. Absent: accessory muscle use, rales, rhonchi, wheezes - Cardiovascular Cardiovascular exam: Present: RRR, +S1, +S2. Absent: diastolic murmur, gallop, rubs, systolic murmur - GI/Abdominal GI/Abdominal exam: Present: normal bowel sounds, soft, non tender, drain in left side of the abdomen Absent: distended, firm, guarding - Extremities Exam Extremities exam: Present: warm, radial pulses palpable and symetrical. Absent : calf tenderness, cyanotic, pedal edema - Neurological Exam Neurological exam: Present: alert, no focal deficits. Absent: facial droop, speech deficit - Skin Skin exam: Present: dry, intact Internal Medicine: Result - Labs CBC & Chem 7: 06/02/16 08:19 06/02/16 08:19 Labs: Short CBC 06/01/16 06/02/16 Range/Units 09:05 08:19 WBC 5.6 6.2 (4.3-11.1) K/mcL Hgb 8.5 L 8.3 L (11.5-15.4) g/dL Hct 27.2 L 27.0 L (35.3-44.9) % Plt Count 504 H 435 H (140-400) K/mcL Neutrophils # 3.6 4.7 (1.6-8.9) K/mcL BMP 06/01/16 06/02/16 09:05 08:19 Sodium 141 141 Potassium 3.5 3.3 L Chloride 105 104 Carbon Dioxide 25 27 BUN 4 L 3 L Creatinine 0.61 0.57 Glucose 162 H 138 H Calcium 8.3 L 8.3 L - ABG Interpretation ABG results: PT/INR, D-dimer PT 12.8 Seconds (9.4-12.1) H 05/31/16 01:23 Consult Discharge Plan - Plan Referrals: Sujata Orr DO [Primary Care Provider] - 06/12/16 1:00 pm (Patient will actually be seeing Yamini the GROUP ART SUPERVISOR in the office. Dr. Orr will be out of the office. Thank you)
[2016-06-02] MEDS: *HR* Morphine 2 MG/ML SYRINGE IVP PRN ×2 (13:17→17:17)
[2016-06-02] MEDS: Ondansetron 4 MG/2 ML VIAL IVP PRN (14:42)
--- NOTE | 2016-06-02 15:08 | General Surgery Progress Note ---
Date of Encounter: 06/02/16 Time of Encounter: 08:40 - Assessment and Plan (1) Abscess of sigmoid colon due to diverticulitis Current Visit: Yes Status: Acute Status post drainage per IR with drain in place. Patient improving. Clear liquid diet with ensure. IV fluids IV antibiotics. Sensitivities returned. Zosyn adequate coverage. Vancomycin discontinued. Supportive care and pain management. Serial abdominal exams. Will need air contrast barium enema in 6-8 weeks. Recommend low residue diet at discharge. Ambulate TID with assist. (2) Metastatic lung cancer (metastasis from lung to other site) Current Visit: Yes Status: Chronic Management per oncologist at [place] Qualifiers: Laterality: right Qualified Code(s): C34.91 - Malignant neoplasm of unspecified part of right bronchus or lung Subjective Patient reports: no new complaints, feels better, pain is less, voiding w/o difficulty, flatus, bowel movement, afebrile Narrative: Patient reports she is feeling better than yesterday. No nausea or vomiting. Tolerating clear liquids. Objective Vital Signs - Last 8 Hours Temp Pulse Resp BP Pulse Ox 06/02/16 11:38 97.8 F 81 16 132/78 94 L 06/02/16 07:29 98.2 F 79 16 132/80 96 Intake and Output 06/01/16 06/02/16 06/02/16 22:59 07:59 15:59 Intake Total 460 / 460 Output Total 20 / 20 Balance 440 / 440 Intake: IV Fluids 100 / 100 Lactated Ringers 1,000 ML @ 80 mls/hr IVC .[id number] [facility] Rx#:[id number] Zosyn 3.375 GM In 100 / 100 Dextrose 5% (Minibag+) 100 ML 100 ML @ 25 mls/hr IVPB Q8HR PHILLY Rx#: [id number] Vancocin 1,000 MG In Dextrose 5% 250 ML @ 167 mls/hr IVPB Q12H [facility]ILLY Rx#: [id number] Oral 360 / 360 Output: Urine 0 / 0 Wound Drainage 20 / 20 Lower Abdomen 20 / 20 Other: Meal Clear Stool Size Stool Consistency Stool Color # Voids # Bowel Movements 0 Weight Blood Glucose* Patient Weight 06/03/16 00:59 Weight 70 kg - General physical appearance well developed, well nourished, no distress - Eyes normal ocular movement - ENT normal mucosa, atraumatic, normocephalic, Other (alocpecia on right side of scalp.) - Neck Neck exam: trachea midline - Respiratory normal respiratory effort, clear to auscultation - Cardiovascular Cardiovascular exam: Present: RRR, no murmurs/rubs/gallops - Abdomen Abdomen: Present: bowel sounds present, soft, non tender, wound (WILMAN in place with purulent drainage. ) - Neurologic CN 2-12 grossly intact - Musculoskeletal normal posture - Psychiatric oriented to time, oriented to person, oriented to place, speech is normal, memory intact - Labs 06/02/16 08:19 06/02/16 08:19 Diabetes panel 06/02/16 Range/Units 08:19 Sodium 141 (136-145) mEq/L Potassium 3.3 L (3.5-4.5) mEq/L Chloride 104 (98-109) mEq/L Carbon Dioxide 27 (19-29) mEq/L BUN 3 L (7-20) mg/dL Creatinine 0.57 (0.57-1.11) mg/dL Glucose 138 H (70-99) mg/dL Calcium 8.3 L (8.6-10.8) mg/dL Calcium panel 06/02/16 Range/Units 08:19 Calcium 8.3 L (8.6-10.8) mg/dL Pituitary panel 06/02/16 Range/Units 08:19 Sodium 141 (136-145) mEq/L Potassium 3.3 L (3.5-4.5) mEq/L Chloride 104 (98-109) mEq/L Carbon Dioxide 27 (19-29) mEq/L BUN 3 L (7-20) mg/dL Creatinine 0.57 (0.57-1.11) mg/dL Glucose 138 H (70-99) mg/dL Calcium 8.3 L (8.6-10.8) mg/dL Adrenal panel 06/02/16 Range/Units 08:19 Sodium 141 (136-145) mEq/L Potassium 3.3 L (3.5-4.5) mEq/L Chloride 104 (98-109) mEq/L Carbon Dioxide 27 (19-29) mEq/L BUN 3 L (7-20) mg/dL Creatinine 0.57 (0.57-1.11) mg/dL Glucose 138 H (70-99) mg/dL Calcium 8.3 L (8.6-10.8) mg/dL Consult Discharge Plan - Plan Referrals: Sujata Orr DO [Primary Care Provider] - 06/12/16 1:00 pm (Patient will actually be seeing Yamini the PUNCH MOLDER in the office. Dr. Orr will be out of the office. Thank you) - Attending Attestation I examined this patient and my medical decision-making was reviewed with the CONTROL OPERATOR/PA/Advanced Practice Nurse/Resident Physician. I agree with the documented findings, disposition and treatment plan as described except to the extent set forth below.
[2016-06-02] MEDS: Ringers Solution, Lactated 1,000 ML IVC SCH (15:45)
[2016-06-03] MEDS: Piperacillin/Tazobactam 3.375 GM in D5% in Water (Mini-Bag+) 100 ML IVPB SCH ×2 (00:25→09:54)
[2016-06-03] MEDS: *HR* Morphine 2 MG/ML SYRINGE IVP PRN (00:26)
[2016-06-03] MEDS: Ringers Solution, Lactated 1,000 ML IVC SCH (04:31)
[2016-06-03] MEDS ORDERED: *HR* Heparin 5,000 UNIT/ML VIAL SQ SCH (06:00)
[2016-06-03 08:38] LABS: Basophils % 0.1 %; Eosinophils % 0.3 %; Hematocrit 25.5 % (35.3-44.9); Hemoglobin 8.2 g/dL (11.5-15.4); Immature Granulocytes % 0.4 % (0-4); Lymphocytes # 0.7 K/mcL (0.6-4.6); Mean Corpuscular HGB Conc 32.2 g/dL (31.6-35.5); Mean Corpuscular Hemoglobin 29.3 pg (28.0-33.3); Mean Corpuscular Volume 91.1 fL (83.0-100.0); Monocytes # 1.3 K/mcL (0.0-1.3); Monocytes % 17.9 %; Neutrophils # 5.2 K/mcL (1.6-8.9); Platelet Count 453 K/mcL (140-400); Red Cell Distribution Width 15.1 % (11.5-14.5); Segmented Neutrophils % 71.3 %
[2016-06-03 08:47] LABS: BUN/Creatinine Ratio 6 (6-26); Blood Urea Nitrogen 5 mg/dL (7-20); Calcium 8.5 mg/dL (8.6-10.8); Carbon Dioxide 27 mEq/L (19-29); Chloride 106 mEq/L (98-109); Glucose 117 mg/dL (70-99); Osmolality,Calculated 290 (280-300); Potassium 3.1 mEq/L (3.5-4.5); Sodium 141 mEq/L (136-145); eGFR For African Americans > 60 (> 60); eGFR For Non-African Americans > 60 (> 60)
[2016-06-03] MEDS: *HR* Pioglitazone 30 MG TABLET PO SCH (09:52)
[2016-06-03] MEDS: *HR* Metformin 500 MG TABLET PO SCH (09:53)
[2016-06-03] MEDS: Gabapentin 100 MG CAPSULE PO SCH ×2 (09:53→13:36)
[2016-06-03] MEDS: Pantoprazole 40 MG VIAL IVP SCH (09:55)
[2016-06-03] MEDS: Fluticasone Propionate Nasal 50 MCG/SPRAY BOTTLE NS SCH (09:55)
[2016-06-03] MEDS: Cholecalciferol (D-3) 1,000 UNIT TABLET PO SCH (09:56)
[2016-06-03 11:03] VITALS: BP 131/71
--- NOTE | 2016-06-03 12:02 | General Surgery Progress Note ---
Date of Encounter: 06/03/16 Time of Encounter: 12:00 - Assessment and Plan (1) Abscess of sigmoid colon due to diverticulitis Current Visit: Yes Status: Acute May advance to low residue diet May transition to oral cipro and flagyl- cultures reviewed Continue pigtail drain Supportive care and pain control Will need an interval colonoscopy in 6-8 weeks F/U with Dr. Edouard 1 week- appointment scheduled (2) Metastatic lung cancer (metastasis from lung to other site) Current Visit: Yes Status: Chronic Management per oncologist at [place] Qualifiers: Laterality: right Qualified Code(s): C34.91 - Malignant neoplasm of unspecified part of right bronchus or lung Subjective Patient reports: no new complaints, feels better, tolerating liquids well, flatus, bowel movement, afebrile Objective Vital Signs - Last 8 Hours Temp Pulse Resp BP Pulse Ox 06/03/16 11:02 98.0 F 82 16 131/71 94 L 06/03/16 07:58 95 06/03/16 05:31 97.9 F 81 16 118/75 95 Intake and Output 06/02/16 06/03/16 06/03/16 23:59 07:59 15:59 Intake Total 220 / 220 1100 / 1100 240 / 240 Output Total 150 / 150 Balance 220 / 220 1100 / 1100 90 / 90 Intake: IV Fluids 100 / 100 1100 / 1100 Lactated Ringers 1,000 ML 1000 / 1000 @ 80 mls/hr IVC .[id number] [facility] Rx#:[id number] Zosyn 3.375 GM In 100 / 100 100 / 100 Dextrose 5% (Minibag+) 100 ML 100 ML @ 25 mls/hr IVPB Q8HR PHILLY Rx#: [id number] Oral 120 / 120 240 / 240 Output: Urine 150 / 150 Wound Drainage 0 / 0 Lower Abdomen 0 / 0 Other: Meal Dinner Breakfast Percent of Meal Consumed 0% # Voids 1 1 1 # Bowel Movements 1 Blood Glucose* 129 125 102 - General physical appearance well developed, well nourished, no distress, no pain - Eyes normal ocular movement - ENT normal mucosa, atraumatic, normocephalic - Neck Neck exam: trachea midline - Respiratory normal expansion, normal respiratory effort, clear to auscultation - Abdomen Abdomen: Present: bowel sounds present, soft, non tender, wound (Pigtail drain with small amount of purulent drainage noted) - Integumentary no rash - Neurologic CN 2-12 grossly intact - Musculoskeletal normal gait, normal posture - Psychiatric oriented to time, oriented to person, oriented to place, speech is normal, memory intact - Labs 06/03/16 08:26 06/03/16 08:26 Diabetes panel 06/03/16 Range/Units 08:26 Sodium 141 (136-145) mEq/L Potassium 3.1 L (3.5-4.5) mEq/L Chloride 106 (98-109) mEq/L Carbon Dioxide 27 (19-29) mEq/L BUN 5 L (7-20) mg/dL Creatinine 0.81 (0.57-1.11) mg/dL Glucose 117 H (70-99) mg/dL Calcium 8.5 L (8.6-10.8) mg/dL Calcium panel 06/03/16 Range/Units 08:26 Calcium 8.5 L (8.6-10.8) mg/dL Pituitary panel 06/03/16 Range/Units 08:26 Sodium 141 (136-145) mEq/L Potassium 3.1 L (3.5-4.5) mEq/L Chloride 106 (98-109) mEq/L Carbon Dioxide 27 (19-29) mEq/L BUN 5 L (7-20) mg/dL Creatinine 0.81 (0.57-1.11) mg/dL Glucose 117 H (70-99) mg/dL Calcium 8.5 L (8.6-10.8) mg/dL Adrenal panel 06/03/16 Range/Units 08:26 Sodium 141 (136-145) mEq/L Potassium 3.1 L (3.5-4.5) mEq/L Chloride 106 (98-109) mEq/L Carbon Dioxide 27 (19-29) mEq/L BUN 5 L (7-20) mg/dL Creatinine 0.81 (0.57-1.11) mg/dL Glucose 117 H (70-99) mg/dL Calcium 8.5 L (8.6-10.8) mg/dL - VTE Documentation of Mechanical Device: Intermittent pneumatic compression device Consult Discharge Plan - Plan Additional Instructions: Low fiber diet for the next 6-8 weeks Referrals: Sujata Orr DO [Primary Care Provider] - 06/12/16 1:00 pm (Patient will actually be seeing Yamini the GEAR GRINDING MACHINE OPERATOR in the office. Dr. Orr will be out of the office. Thank you) Dax Edouard DO [Partnered Physician] - 06/10/16 10:45 am (surgery follow-up)
--- NOTE | 2016-06-03 12:16 | Discharge Summary ---
Date of Encounter: 06/03/16 Time of Encounter: 12:14 - Discharge Diagnosis (1) Abscess of sigmoid colon due to diverticulitis Priority: Primary Status: Acute (2) Metastatic lung cancer (metastasis from lung to other site) Priority: Secondary Status: Chronic Qualifiers: Laterality: right Qualified Code(s): C34.91 - Malignant neoplasm of unspecified part of right bronchus or lung - Discharge Medications Prescriptions: Ciprofloxacin [Cipro] 500 mg PO BID #20 tablet HYDROcodone/Acet 5/325 mg [[place] 5-325 mg] 1 tab PO Q6H PRN #30 tab PRN Reason: Pain MetroNIDAZOLE [Flagyl] 500 mg PO TID 10 Days Home Medications: Fluticasone Propionate Nasal [Flonase] 100 mcg NS DAILY 01/19/15 [History] Cholecalciferol (D-3) [Vitamin D] 5,000 unit PO DAILY 09/26/15 [History] Prochlorperazine Maleate [Compazine] 10 mg PO Q6HR PRN #60 tablet 03/14/16 [Rx] Metformin [Glucophage] 500 mg PO BID 05/13/16 [History] Gabapentin [Neurontin] 100 mg PO TID 05/31/16 [History] Pantoprazole Sodium [Protonix] 40 mg PO DAILY PRN 05/31/16 [History] Pioglitazone HCl 30 mg PO DAILY 05/31/16 [History] Venlafaxine HCl 37.5 mg PO BID 05/31/16 [History] Ciprofloxacin [Cipro] 500 mg PO BID #20 tablet 06/03/16 [Rx] HYDROcodone/Acet 5/325 mg [[place] 5-325 mg] 1 tab PO Q6H PRN #30 tab 06/03/16 [Rx ] MetroNIDAZOLE [Flagyl] 500 mg PO TID 10 Days 06/03/16 [Rx] Allergies/Adverse Reactions: Allergies codeine Adverse Reaction (Verified 05/31/16 10:20) Drowsy Date of admission: 05/31/16 06:57 Primary care physician: Sujata Orr Consults: 05/31/16 09:32 Consult to Interventional Radiology [CONS] Routine Consulting Provider: Radiology Interventional Cols Reason for Consult: drainage of diverticular abscess Time Notified: 09:33 Call Completed: Yes Discharging clinician: Taiwo Gonzalez Anticipated date of discharge: 06/03/16 - Patient Status Disposition: Home, Self-Care Condition: Fair Functional capacity at discharge: independent ambulation Overall status at discharge: patient is progressing back to baseline - Discharge Instructions Instructions: Ciprofloxacin (By mouth), Hydrocodone/Acetaminophen (By mouth), Metronidazole (By mouth), Diverticulitis (DC) Follow Up With: Dax Edouard DO [Partnered Physician] - 06/10/16 10:45 am (surgery follow-up) Sujata Orr DO [Primary Care Provider] - 06/12/16 1:00 pm (Patient will actually be seeing Yamini the CRUSHER in the office. Dr. Orr will be out of the office. Thank you) Additional Instructions: Low fiber diet for the next 6-8 weeks - Diet and Activity Activity: resume usual activities as tolerated Diet: other (low fiber diet for 6-8 weeks) Interval History: Mrs. Rose is a very pleasant 65 year old female who presented to the ED with a 3 week history of abdominal pain. S. Her last colonoscopy was approximately 3 years ago and was normal at that time. She does have a history of colon polyps. diverticulitis with abscess was seen on CT scan. She underwent IR guided drainage of abscess, started on IV antibiotics. Diet was gradually advanced, general surgery was consulted and was following the patient while inpatient. She improved clinically, did not have any fever or leukocytosis, at this time patient will be discharged with the drain to follow up with surgery as outpatient. Patient denies any worsening abdominal pain, nausea or vomiting at this time. The wound culture grew citrobacter and Klebsiella pneumoniae however the anaerobic culture is preliminarily negative and will be finalized after 5 days of incubation. Hence, she is being discharged on oral Cipro and Flagyl for 10 days and will follow up with surgery as outpatient. Hospital course: Ms. Rose is a 65 year old female Time spent discussing smoking cessation with patient: more than 10 minutes - Time Spent with Patient Total time spent providing and/or coordinating discharge services: Greater than 30 minutes - Constitutional Vitals: Temp Pulse Resp BP Pulse Ox 98.0 F 82 16 131/71 94 L 06/03/16 11:02 06/03/16 11:02 06/03/16 11:02 06/03/16 11:02 06/03/16 11:02 General appearance: Present: cooperative, pleasant, no acute distress, answers questions appropriately Exam: - Head Head exam: Present: atraumatic, normocephalic - Eye Eye exam: Present: PERRL, conjuntiva pink, sclera anicteric - Neck Neck exam general surgery: Present: supple, trachea midline. Absent: lymphadenopathy - Respiratory Respiratory exam: Present: CTAB. Absent: accessory muscle use, rales, rhonchi, wheezes - Cardiovascular Cardiovascular exam: Present: RRR, +S1, +S2. Absent: diastolic murmur, gallop, rubs, systolic murmur - GI/Abdominal GI/Abdominal exam: Present: normal bowel sounds, soft, non tender, drain in left side of the abdomen Absent: distended, firm, guarding - Extremities Exam Extremities exam: Present: warm, radial pulses palpable and symetrical. Absent : calf tenderness, cyanotic, pedal edema - Neurological Exam Neurological exam: Present: alert, no focal deficits. Absent: facial droop, speech deficit - Skin Skin exam: Present: dry, intact - VTE Documentation of Mechanical Device: Intermittent pneumatic compression device
[2016-06-03] MEDS: Ondansetron 4 MG/2 ML VIAL IVP PRN (13:35)
== END 2016-06-03 15:06 | disposition home or self-care (01) | DRG 392 ==
LOC: 3ANU 21:20 → EMEROO 21:20 → 3ANU 05-31 03:51 → SUATTDRO 05-31 06:57 → 3ANU 06-01 09:02
PROVIDERS: ADMIT Hospitalist; ATTEND Internal Medicine Endocrinology, Diabetes & Metabolism
PROC: IRDRAIN (2016-05-31 12:00)